=== PATIENT | male | born 1990 | race Caucasian/White ===

== ENCOUNTER 2017-10-11 17:56 | Emergency (ER) | payer OTHER ==
[~2017-10-11] VITALS: Ht 172.7 cm; Wt 72.1 kg
[2017-10-11 19:21] VITALS: BP 121/81
== END 2017-10-11 19:28 | disposition home or self-care (01) ==
LOC: EME 17:56
DX: S09.90XA Unspecified injury of head, initial encounter (principal); S00.412A Abrasion of left ear, initial encounter; Y00.XXXA Assault by blunt object, initial encounter; Y07.9 Unspecified perpetrator of maltreatment and neglect; F17.200 Nicotine dependence, unspecified, uncomplicated
CPT/HCPCS: 99281; 99283

== ENCOUNTER 2017-10-13 15:09 | Emergency (ER) | payer OTHER ==
[~2017-10-13] VITALS: Ht 172.7 cm; Wt 71.2 kg
[2017-10-13 19:10] VITALS: BP 120/68
== END 2017-10-13 19:11 | disposition home or self-care (01) ==
LOC: EME 15:09
DX: F07.81 Postconcussional syndrome (principal); J32.9 Chronic sinusitis, unspecified; J34.2 Deviated nasal septum; J45.909 Unspecified asthma, uncomplicated; F17.200 Nicotine dependence, unspecified, uncomplicated
CPT/HCPCS: 70450; 70486; 99281; 99284; J2765